=== PATIENT | female | born 2000 | race Caucasian/White ===

== ENCOUNTER 2024-03-01 09:05 | Inpatient (IN) | payer OTHER, MEDICAID ==
[2024-03-01 16:37] LABS: Amphetamine,Urine NEGATIVE (NEGATIVE); Barbiturate,Urine NEGATIVE (NEGATIVE); Benzodiazepine,Urine NEGATIVE (NEGATIVE); Cocaine,Urine NEGATIVE (NEGATIVE); Methadone,Urine NEGATIVE (NEGATIVE); Opiate,Urine NEGATIVE (NEGATIVE); PCP,Urine NEGATIVE (NEGATIVE); THC,Urine NEGATIVE (NEGATIVE)
[2024-03-01] MEDS ORDERED: PITOCIN 30 UNITS/ LR 500 ML 30 UNITS/500 ML PLAST..BAG IV SCH (17:00)
[2024-03-01] MEDS ORDERED: Zofran 4 MG/2 ML VIAL IV PRN (17:00)
[2024-03-01] MEDS ORDERED: BRETHINE 1 MG/ML SQ PRN (17:11)
[2024-03-01 17:33] LABS: Absolute Neutrophil Ct (ANC) 8.83 x10^3/uL (1.56-6.13); BASOPHIL % 0.2 % (0.1-1.2); Basophil (Absolute #) 0.02 x10^3/uL (0.01-0.08); Eosinophil (Absolute #) 0.12 x10^3/uL (0.04-0.36); Hemoglobin 12.9 g/dL (11.2-15.7); IMMATURE GRAN # 0.06 x10^3u/L (0.001-0.031); IMMATURE GRAN % 0.5 % (0.001-0.429); Lymphocyte (Absolute #) 2.08 x10^3/uL (1.18-3.74); Lymphocytes % 17.5 % (19.3-51.7); Mean Cell Volume 85.4 fL (79.4-94.8); Mean Corpuscular Hgb Concent. 33.9 g/dL (32.2-35.5); Mean Platelet Volume 9.8 fL (9.4-12.3); Monocyte (Absolute #) 0.77 x10^3/uL (0.24-0.86); Monocytes % 6.5 % (4.7-12.5); Neutrophil % 74.3 % (34.0-71.1); Platelet Count 320 x10^3/uL (182-369); Red Blood Count 4.45 x10^6/uL (3.93-5.22); Red Cell Distribution Width 13.4 % (11.7-14.4); White Blood Count 11.9 x10^3/uL (3.98-10.04)
[2024-03-01] MEDS: Lactated Ringers 1,000 ML IV SCH (17:35)
[2024-03-01] MEDS: PITOCIN 30 UNITS/ LR 500 ML 30 UNITS/500 ML PLAST..BAG IV SCH (17:36)
[2024-03-01 18:12] LABS: ALBUMIN 3.4 g/dL (3.5-5.0); ANION GAP 12.3 MEQ/L (5-15); BILIRUBIN,TOTAL 0.2 mg/dL (0.2-1.3); Calcium 9.6 mg/dL (8.4-10.2); Creatinine 1 0.71 mg/dL (0.52-1.04); EST GLOMERULAR FILTRATION RATE 120.2 ML/MIN; Potassium 3.3 mmol/L (3.5-5.1); Total Protein 6.8 g/dL (6.3-8.2)
[2024-03-01 18:13] LABS: Appearance Cloudy (Clear); Bacteria Rare /HPF (None Seen); Bilirubin Negative (Negative); Blood Negative (Negative); Epithelial Cells None Seen /HPF (None Seen); Glucose, Urine Negative (Negative); Hyaline Casts NONE SEEN /LPF (0-2); Ketones Negative (Negative); Leukocyte Esterase Trace (Negative); Nitrite Negative (Negative); Protein,Urine Dip Negative (Negative); RBC 0-2 /HPF (0-5); Urobilinogen 0.2 mg/dL (0.2)
[2024-03-01 18:14] LABS: ABO TYPING B; Antibody Screen NEGATIVE (NEGATIVE); RH TYPING POSITIVE
[2024-03-01 18:15] LABS: Creatinine, Urine Random 61.8 mg/dl; Protein Creatinine Ratio, Ran. 0.31 mg/mg (0.0-0.15)
[2024-03-01 19:36] LABS: AMNISURE TEST RESULTS POSITIVE (NEGATIVE)
[2024-03-01] MEDS ORDERED: Ephedrine Sulfate 50 MG/ML IV PRN (20:58)
[2024-03-01] MEDS: Lactated Ringers 1,000 ML IV ONE (21:16)
[2024-03-01] MEDS: FENTANYL 2 MCG-BUPIV 0.125%-NS 250 ML Epidur 250 ML EPIDURAL SCH (21:17)
[2024-03-02] MEDS: TYLENOL EXTRA STRENGTH 500 MG PO PRN (05:54)
[2024-03-02] MEDS ORDERED: XYLOCAINE 1% HCL 20 ML MDV ONE (18:37)
[2024-03-02] MEDS ORDERED: CORTISONE 1% CREAM TP PRN (20:24)
[2024-03-02] MEDS ORDERED: Anucort-HC SUPPOSITORY PR PRN (20:24)
[2024-03-02] MEDS ORDERED: Ambien 10 MG PO PRN (20:24)
[2024-03-02] MEDS ORDERED: Dulcolax 10 MG SUPP PR PRN (20:24)
[2024-03-02] MEDS ORDERED: Mylicon 80MG PO PRN (20:24)
[2024-03-02] MEDS: Docusate Sodium 100 MG PO SCH (20:30)
[2024-03-02] MEDS: MOTRIN 400 MG PO PRN (20:30)
[2024-03-02] MEDS: XYLOCAINE 1% HCL 20 ML MDV IJ ONE (20:44)
[2024-03-02] MEDS: Dermoplast Spray TP PRN (20:47)
[2024-03-02] MEDS: LANSINOH 40 GM TOP PRN (20:48)
[2024-03-02] MEDS: TUCKS TP PRN (20:48)
[2024-03-03 03:39] VITALS: O2SAT 98
[2024-03-03 04:16] LABS: Absolute Neutrophil Ct (ANC) 19.88 x10^3/uL (1.56-6.13); BASOPHIL % 0.2 % (0.1-1.2); Basophil (Absolute #) 0.05 x10^3/uL (0.01-0.08); Eosinophil % 0.6 % (0.7-5.8); Eosinophil (Absolute #) 0.14 x10^3/uL (0.04-0.36); Hematocrit 32.8 % (34.1-44.9); Hemoglobin 11.2 g/dL (11.2-15.7); IMMATURE GRAN # 0.17 x10^3u/L (0.001-0.031); IMMATURE GRAN % 0.7 % (0.001-0.429); Lymphocyte (Absolute #) 2.97 x10^3/uL (1.18-3.74); Mean Corpuscular Hemoglobin 29.7 pg (25.6-32.2); Mean Corpuscular Hgb Concent. 34.1 g/dL (32.2-35.5); Mean Platelet Volume 10.1 fL (9.4-12.3); Monocyte (Absolute #) 1.55 x10^3/uL (0.24-0.86); Monocytes % 6.3 % (4.7-12.5); Neutrophil % 80.2 % (34.0-71.1); Platelet Count 304 x10^3/uL (182-369); Red Blood Count 3.77 x10^6/uL (3.93-5.22); Red Cell Distribution Width 13.7 % (11.7-14.4); White Blood Count 24.8 x10^3/uL (3.98-10.04)
[2024-03-03 07:25] LABS: Slide Review 1 YES
--- NOTE | 2024-03-03 08:07 | PCM.NOTE ---
Date and Time: 03/03/24804 Subjective Assessment: ppd 1 sp pt resting in bed and doing well able to ambulate and tolerate diet vss afebrile one elevated bp thus far abd; soft uterus; firm lochia; mild hgb; 11 a/p sp ppd 1 with mild preeclampsia will do serial bp today for evaluation of htn pt desires to be discharged home today Objective Data Vital Signs: Vital Signs - 24 hr Temp Pulse Resp BP BP BP Pulse Ox 03/03/24 06:35 83 16 127/77 03/03/24 03:38 98.4 F 103 H 18 139/96 98 03/03/24 00:00 97.9 F 104 H 18 109/62 139/79 100 03/02/24 23:45 97.9 F 104 H 18 109/62 139/79 100 03/02/24 21:03 98.2 F 123 H 18 141/95 139/79 100 03/02/24 20:00 98.2 F 123 H 18 141/95 139/79 100 03/02/24 19:45 122 H 20 125/86 125/86 99 03/02/24 19:30 118 H 18 137/83 139/79 99 03/02/24 19:15 98.0 F 115 H 20 138/85 130/77 99 03/02/24 18:53 98.2 F 127 H 24 139/79 99 03/02/24 18:38 127 H 24 138/90 97 03/02/24 18:00 131 H 24 183/97 03/02/24 17:45 125 H 24 145/93 03/02/24 17:30 125 H 24 145/93 03/02/24 17:15 125 H 24 145/93 03/02/24 17:00 117 H 18 138/92 03/02/24 16:45 117 H 18 138/92 03/02/24 16:30 118 H 18 144/63 03/02/24 16:15 118 H 18 144/63 03/02/24 16:00 98.2 F 108 H 24 124/63 124/63 03/02/24 15:45 122 H 24 130/76 03/02/24 15:30 122 H 24 139/90 03/02/24 15:15 122 H 24 131/88 03/02/24 15:00 98.2 F 112 H 24 131/88 03/02/24 14:45 100 H 16 122/68 03/02/24 14:30 112 H 16 124/61 03/02/24 14:15 110 H 16 152/88 03/02/24 14:00 110 H 16 152/88 03/02/24 13:45 110 H 16 134/87 03/02/24 13:30 107 H 24 136/85 03/02/24 13:15 102 H 24 136/82 03/02/24 13:00 102 H 24 136/82 03/02/24 12:45 123 H 24 153/73 03/02/24 12:30 110 H 22 150/95 03/02/24 12:15 101 H 20 130/75 03/02/24 12:00 109 H 20 158/94 158/94 03/02/24 11:45 109 H 20 158/94 03/02/24 11:30 101 H 20 140/105 03/02/24 11:15 101 H 18 03/02/24 11:00 101 H 18 137/89 03/02/24 10:45 98.2 F 91 H 18 123/65 03/02/24 10:30 98.2 F 91 H 18 127/70 03/02/24 10:15 98.2 F 101 H 18 138/88 03/02/24 10:00 97 H 18 134/85 03/02/24 09:45 98 H 18 03/02/24 09:30 98 H 18 148/88 03/02/24 09:15 96 H 18 119/87 03/02/24 09:00 96 H 18 119/87 03/02/24 08:45 95 H 16 124/87 03/02/24 08:30 89 16 108/69 03/02/24 08:15 18 Pain Assessment - Last Documented Pain Intensity [Lower] 0 Pain Intensity 4 Pain Scale Used 0-10 Pain Scale Intake and Output: Intake & Output 02/29/24 03/01/24 03/02/24 03/03/24 11:59 11:59 11:59 11:59 Intake Total 3000 3200 Output Total 3500 1275 Balance -500 1925 Weight 86.183 kg Lab Results: Lab Results-Last 24 Hours 03/03/24 Range/Units 04:12 WBC 24.8 H (3.98-10.04) x10^3/uL RBC 3.77 L (3.93-5.22) x10^6/uL Hgb 11.2 (11.2-15.7) g/dL Hct 32.8 L (34.1-44.9) % MCV 87.0 (79.4-94.8) fL MCH 29.7 (25.6-32.2) pg MCHC 34.1 (32.2-35.5) g/dL RDW 13.7 (11.7-14.4) % Plt Count 304 (182-369) x10^3/uL MPV 10.1 (9.4-12.3) fL Gran % 80.2 H (34.0-71.1) % Immature Gran % (Auto) 0.7 H (0.001-0.429) % Nucleat RBC Rel Count 0.0 (0.00-0.2) % Eos # (Auto) 0.14 (0.04-0.36) x10^3/uL Immature Gran # (Auto) 0.17 H (0.001-0.031) x10^3u/L Absolute Lymphs (auto) 2.97 (1.18-3.74) x10^3/uL Absolute Monos (auto) 1.55 H (0.24-0.86) x10^3/uL Absolute Nucleated RBC 0.00 (0.00-0.012) x10^3u/L Lymphocytes % 12.0 L (19.3-51.7) % Monocytes % 6.3 (4.7-12.5) % Eosinophils % 0.6 L (0.7-5.8) % Basophils % 0.2 (0.1-1.2) % Absolute Granulocytes 19.88 H (1.56-6.13) x10^3/uL Basophils # 0.05 (0.01-0.08) x10^3/uL Slides for Path Review YES Assessment/Plan (1) Vaginal delivery Current Visit: Yes Status: Acute Code(s): O80 - ENCOUNTER FOR FULL-TERM UNCO MPLICATED DELIVERY
[2024-03-03] MEDS: FERREX 150 PO SCH (09:28)
[2024-03-03] MEDS: Adacel Vial IM ONE (09:52)
[2024-03-03 11:35] LABS: RPR Non Reactive (Non Reactive)
[2024-03-03 11:48] VITALS: BP 116/72; PULSE 92; RESP 16; TEMP 97.8
[2024-03-03 13:35] LABS: Absolute Neutrophil Ct (ANC) 14.11 x10^3/uL (1.56-6.13); BASOPHIL % 0.1 % (0.1-1.2); Basophil (Absolute #) 0.02 x10^3/uL (0.01-0.08); Eosinophil % 0.9 % (0.7-5.8); Eosinophil (Absolute #) 0.15 x10^3/uL (0.04-0.36); Hematocrit 31.3 % (34.1-44.9); Hemoglobin 10.5 g/dL (11.2-15.7); IMMATURE GRAN % 0.6 % (0.001-0.429); Lymphocyte (Absolute #) 2.37 x10^3/uL (1.18-3.74); Lymphocytes % 13.5 % (19.3-51.7); Mean Cell Volume 87.7 fL (79.4-94.8); Mean Corpuscular Hemoglobin 29.4 pg (25.6-32.2); Mean Corpuscular Hgb Concent. 33.5 g/dL (32.2-35.5); Mean Platelet Volume 9.8 fL (9.4-12.3); Monocyte (Absolute #) 0.83 x10^3/uL (0.24-0.86); Monocytes % 4.7 % (4.7-12.5); Neutrophil % 80.2 % (34.0-71.1); Platelet Count 264 x10^3/uL (182-369); Red Blood Count 3.57 x10^6/uL (3.93-5.22); Red Cell Distribution Width 13.8 % (11.7-14.4); White Blood Count 17.6 x10^3/uL (3.98-10.04)
--- NOTE | 2024-03-03 15:37 | PCM.DS ---
Discharge Summary Date of Admission: 03/01/24 18:00 Admitting Physician: JEANA ARMAS DO Consults: Consults on Case 03/01/24 20:59 Notify Anesthesia Provider PRN 03/02/24 20:24 Notify Physician ROUTINE Primary Care Provider: JARROD KEYES Allergies Allergies No Known Drug Allergies Allergy (Unverified 03/01/24 19:57) Hospital Summary - Hospital Course Hospital Course: PT ADMITTED AT 40 1/7 WKS GESTATION ON MAR 01 FOR MEJIA INDUCTION AND HAD IT PLACED AND SUBSEQUENTLY HAD SROM A COUPLE HRS LATER APPROXIMATELY 7 PM AND PITOCIN WAS STARTED AND HAD EPIDURAL AND SUBSEQUENTLY DELIVERED LIVE BABY BOY WITHOUT COMPLICATION WITH NUCHAL CORD X 1 REDUCED AT 626 PM ON MAR 02. DURING PERIOD DID WELL AND WAS NOTED HAVING ONE ELEVATED BP WHEN BABY WAS TRANSFERRED TO [facility] FOR HYPOGYLCEMIA. PT WAS OTHERWISE DOING VERY WELL AND DESIRED TO BE DISCHARGED SO SHE CAN ATTEND TO HER IN [place]. ALL QUESTIONS ANSWERED TO HER SATISFACTION AND WAS ADVISED TO FU IN OFFICE IN 1 WK. - Vitals & Intake/Output Vital Signs: Vital Signs Temperature 97.8 F 03/03/24 11:00 Pulse Rate 92 H 03/03/24 11:00 Respiratory Rate 16 03/03/24 11:00 Blood Pressure 116/72 03/03/24 11:00 O2 Sat by Pulse Oximetry 98 03/03/24 11:00 Intake & Output: Intake & Output 03/01/24 03/02/24 03/03/24 03/04/24 11:59 11:59 11:59 11:59 Intake Total 3000 3200 Output Total 3500 1275 Balance -500 1925 Weight 86.183 kg - Lab Result Diagrams: 03/03/24 13:35 03/01/24 17:25 Lab Results-Last 24 Hrs: Lab Results-Last 24 Hours 03/01/24 03/03/24 03/03/24 Range/Units 17:25 04:12 13:35 WBC 24.8 H 17.6 H (3.98-10.04) x10^3/uL RBC 3.77 L 3.57 L (3.93-5.22) x10^6/uL Hgb 11.2 10.5 L (11.2-15.7) g/dL Hct 32.8 L 31.3 L (34.1-44.9) % MCV 87.0 87.7 (79.4-94.8) fL MCH 29.7 29.4 (25.6-32.2) pg MCHC 34.1 33.5 (32.2-35.5) g/dL RDW 13.7 13.8 (11.7-14.4) % Plt Count 304 264 (182-369) x10^3/uL MPV 10.1 9.8 (9.4-12.3) fL Gran % 80.2 H 80.2 H (34.0-71.1) % Immature Gran % (Auto) 0.7 H 0.6 H (0.001-0.429) % Nucleat RBC Rel Count 0.0 0.0 (0.00-0.2) % Eos # (Auto) 0.14 0.15 (0.04-0.36) x10^3/uL Immature Gran # (Auto) 0.17 H 0.10 H (0.001-0.031) x10^3u/L Absolute Lymphs (auto) 2.97 2.37 (1.18-3.74) x10^3/uL Absolute Monos (auto) 1.55 H 0.83 (0.24-0.86) x10^3/uL Absolute Nucleated RBC 0.00 0.00 (0.00-0.012) x10^3u/L Lymphocytes % 12.0 L 13.5 L (19.3-51.7) % Monocytes % 6.3 4.7 (4.7-12.5) % Eosinophils % 0.6 L 0.9 (0.7-5.8) % Basophils % 0.2 0.1 (0.1-1.2) % Absolute Granulocytes 19.88 H 14.11 H (1.56-6.13) x10^3/uL Basophils # 0.05 0.02 (0.01-0.08) x10^3/uL RPR Non Reactive (Non Reactive) Slides for Path Review YES Micro Results-Entire Visit: Microbiology 03/01/24 23:20 Urine Culture - Final Urine, Indwelling Catheter NO GROWTH Final Diagnosis/Problem List - Final Discharge Diagnosis/Problem (1) Vaginal delivery Current Visit: Yes Status: Acute Code(s): O80 - ENCOUNTER FOR FULL-TERM UNCOMPLICATED DELIVERY - Discharge Disposition: Home, Self-Care Condition: Stable Follow up with: JEANA ARMAS DO [ACTIVE STAFF] - 1 Week (SHOULD FU IN 1 WK FOR BP EVALUATION) JARROD KEYES PA [Primary Care Provider] - Call for Appointment (SHOULD FU IN OFFICE IN 1 WK FOR BP EVALUATION)
== END 2024-03-03 16:50 | disposition home or self-care (01) | DRG 807 ==
LOC: OB 15:55 → OBSVTOIN 18:00
PROVIDERS: ADMIT Obstetrics & Gynecology; ATTEND Obstetrics & Gynecology
PROC: 10E0XZZ Delivery of Products of Conception, External Approach (ICD-10-PCS; principal; 2024-03-02)
PROC: 0HQ9XZZ Repair Perineum Skin, External Approach (ICD-10-PCS; 2024-03-02)
DX: O69.81X0 Labor and delivery complicated by cord around neck, without compression, not applicable or unspecified (principal); Z37.0 Single live birth; O70.0 First degree perineal laceration during delivery; Z3A.40 40 weeks gestation of pregnancy
CPT/HCPCS: 36415; 59400; 80053; 80307; 81001; 82570; 83615; 84112; 84156; 84550; 85025; 86592; 86850; 86900; 86901; 87086; 90472; 90715; J2590; A9270-GY

== ENCOUNTER 2024-06-15 07:23 | Day surgery (SDC) | payer MEDICAID ==
[2024-06-15 07:48] LABS: HCG URINE TEST NEGATIVE (NEGATIVE)
[2024-06-15] MEDS ORDERED: CLINDAMYCIN-D5W 900 MG/50 ML*** 900 MG/50 ML BAG IV ONE (07:50)
[2024-06-15] MEDS ORDERED: NEURONTIN ONE (07:50)
[2024-06-15] MEDS ORDERED: TYLENOL EXTRA STRENGTH 500 MG ONE (07:50)
[2024-06-15] MEDS ORDERED: Decadron 4 MG ONE (07:50)
[2024-06-15] MEDS ORDERED: celeBREX 100 MG ONE (07:50)
[2024-06-15] MEDS ORDERED: Lactated Ringers 1,000 ML IV ONE (07:51)
[2024-06-15] MEDS: NEURONTIN PO ONE (07:54)
[2024-06-15] MEDS: TYLENOL EXTRA STRENGTH 500 MG PO ONE (07:54)
[2024-06-15] MEDS: CLINDAMYCIN-D5W 900 MG/50 ML*** 900 MG/50 ML BAG IV ONE (07:54)
[2024-06-15] MEDS: celeBREX 100 MG PO ONE (07:54)
[2024-06-15] MEDS: Decadron 4 MG PO ONE (07:55)
[2024-06-15] MEDS: Lactated Ringers 1,000 ML IV SCH (07:55)
[2024-06-15 08:07] VITALS: RESP 16
[2024-06-15 08:13] LABS: Absolute Neutrophil Ct (ANC) 4.57 x10^3/uL (1.56-6.13); BASOPHIL % 0.1 % (0.1-1.2); Basophil (Absolute #) 0.01 x10^3/uL (0.01-0.08); Eosinophil % 1.3 % (0.7-5.8); Hematocrit 40.7 % (34.1-44.9); Hemoglobin 13.7 g/dL (11.2-15.7); IMMATURE GRAN # 0.02 x10^3u/L (0.001-0.031); IMMATURE GRAN % 0.3 % (0.001-0.429); Lymphocyte (Absolute #) 2.06 x10^3/uL (1.18-3.74); Lymphocytes % 27.2 % (19.3-51.7); Mean Cell Volume 83.2 fL (79.4-94.8); Mean Corpuscular Hgb Concent. 33.7 g/dL (32.2-35.5); Mean Platelet Volume 9.6 fL (9.4-12.3); Monocyte (Absolute #) 0.82 x10^3/uL (0.24-0.86); Monocytes % 10.8 % (4.7-12.5); Neutrophil % 60.3 % (34.0-71.1); Platelet Count 387 x10^3/uL (182-369); Red Blood Count 4.89 x10^6/uL (3.93-5.22); Red Cell Distribution Width 12.4 % (11.7-14.4); White Blood Count 7.6 x10^3/uL (3.98-10.04)
[2024-06-15] MEDS ORDERED: ASTRINGYN 8 GM TP ONE (10:12)
[2024-06-15] MEDS ORDERED: Lugol's Solution ONE (10:13)
[2024-06-15] MEDS ORDERED: XYLOCAINE 1%/Epi 1:100000 MDV 20 ML ONE (10:13)
[2024-06-15] MEDS ORDERED: TORAdol 30 mg Injection ONE (10:33)
[2024-06-15] MEDS ORDERED: Zofran 4 MG/2 ML VIAL ONE (10:33)
[2024-06-15] MEDS ORDERED: propofoL IV ONE (10:33)
[2024-06-15 11:34] VITALS: TEMP 97.8; O2SAT 98
[2024-06-15 11:46] VITALS: BP 113/70; PULSE 99
--- NOTE | 2024-06-16 11:31 | OP ---
SURGERY DATE/TIME: 06/15/2024 [id number] PREOPERATIVE DIAGNOSIS: Severe cervical dysplasia. POSTOPERATIVE DIAGNOSIS: Severe cervical dysplasia. PROCEDURE: Loop electrosurgical excision procedure or LEEP. SURGEON: Georgi Barton D.O. INSPECTION SUPERVISOR: Rosemarie Marie. ANESTHESIA: General. ESTIMATED BLOOD LOSS: Minimal. COMPLICATIONS: None. FINDINGS: The risks, benefits, indications, and alternatives of the procedure were reviewed with the patient prior to the procedure. Patient understood the risk of infection, bleeding, bowel injury, bladder injury, uterine perforation, pelvic infection, thromboembolic disorder, as well cervical incompetence associated with the surgery and desires to have the surgery as a possible means to alleviate her current medical condition. DESCRIPTION OF PROCEDURE AND FINDINGS: At this point, patient was taken to the operating room, given general sedation, placed in the dorsal lithotomy position, prepped and draped in the usual sterile fashion. A coated speculum was then placed in the patient's vagina, and the cervix was then injected circumferentially with 1% lidocaine with epinephrine, approximately 10 mL was used. From this point, the loop instrument was then placed on the right to left motion where an ectocervical tissue was excised with an in depth of 7 to 8 mm and was excised without complication where an additional 2 to 3 mm of endocervical tissue was excised in a similar fashion. After complete excision, the loop slasher runner ball was placed on the surface of the cervix; however, there continued to be some bleeding noted at the 6 o'clock region. At this point, a #1 Vicryl suture was used to ligate the bleeding region and hemostasis was obtained. From this point, all instruments were removed from the patient's vaginal region. The patient was then taken out of the dorsal lithotomy position, was taken out of anesthesia, was then taken to the recovery room in stable condition. All instruments and laps were accounted for x2.
== END 2024-06-15 11:58 | disposition home or self-care (01) ==
LOC: SDC 07:23
PROVIDERS: ATTEND Obstetrics & Gynecology
DX: D06.9 Carcinoma in situ of cervix, unspecified (principal)
CPT/HCPCS: 57460; 81025; 85025; J1885; J2405; J2704; A9270-GY